=== PATIENT | female | born 1960 | race Caucasian/White ===

== ENCOUNTER 2021-06-21 15:23 | Outpatient (REF) | payer OTHER, SELFPAY ==
--- NOTE | ~2021-06-21 | XR_ITS ---
EXAMINATION: XR RIBS, RIGHT CLINICAL INFORMATION: Pain in the right ribs. Evaluate for a rib fracture. COMPARISON: None TECHNIQUE: Frontal view of chest. 3 oblique views of right ribs. A BB was placed in area of pain at the lower right ribs. FINDINGS: Lungs are clear. No consolidation, pneumothorax, or pleural effusion. The cardiomediastinal silhouette and pulmonary vasculature are normal. Osseous structures are unremarkable. Ribs are intact. No fractures are identified. XR/XR ribs RT min 3V w CXR1V IMPRESSION: Unremarkable examination.
== END 2021-06-21 15:24 | disposition home or self-care (01) ==
LOC: HO.XRAY 15:23
PROVIDERS: PCP Internal Medicine; Visit Provider Internal Medicine
DX: R07.81 Pleurodynia (principal)
CPT/HCPCS: 71101

== ENCOUNTER 2021-09-22 09:00 | Outpatient (REF) | payer OTHER, SELFPAY ==
--- NOTE | ~2021-09-22 | MR_ITS ---
EXAMINATION: MR BRAIN WITHOUT CONTRAST CLINICAL INFORMATION: Cerebral microvascular disease. Numbness/tingling. COMPARISON: Brain MRI from 10/06/2006. TECHNIQUE: MRI of the brain was obtained using routine sequences without contrast. FINDINGS: No focal restricted diffusion is demonstrated to suggest acute or subacute cerebral ischemia. No evidence of acute or chronic hemorrhagic products on heme-sensitive imaging. Scattered periventricular and deep white matter T2 FLAIR hyperintensities consistent with mild to moderate underlying microangiopathy. The ventricles are normal in morphology and size. No abnormal mass effect. No midline shift. Of the pituitary gland. There is a T1 hyperintense and T2 isointense lesion in the posterior aspect of the pituitary gland, measuring 0.8 x 0.5 x 0.5 cm. The suprasellar cistern remains widely patent. The cerebellar tonsils are mildly low lying, positioned 0.4 cm below the foramen magnum. The CSF space of the foramen magnum is maintained. Normal arterial and venous vascular flow voids are present. Normal, homogeneous marrow signal. Mild mucosal thickening of the paranasal sinuses. Mild rightward nasal septal deviation. No signal abnormalities within the mastoids. MR/MR head/brain wo con IMPRESSION: 1. No acute intracranial abnormalities. 2. Mild to moderate underlying microangiopathy, slightly progressed compared to exam from 2006. 3. There is a 0.8 cm nodular lesion in the posterior aspect of the pituitary gland. This lesion is more conspicuous than exam from 2006 and may represent an underlying microadenoma. If clinically indicated, this could be further characterized with pituitary protocol MRI. 4. Mild cerebellar tonsillar ectopia, unchanged.
== END 2021-09-22 09:01 | disposition home or self-care (01) ==
LOC: HO.MRI 09:00
PROVIDERS: PCP Internal Medicine; Visit Provider Psychiatry & Neurology Neurology
DX: I67.9 Cerebrovascular disease, unspecified (principal); R20.2 Paresthesia of skin
CPT/HCPCS: 70551

== ENCOUNTER 2021-09-29 14:43 | Outpatient (REF) | payer OTHER, SELFPAY ==
[2021-09-29 15:58] LABS: Erythrocyte Sedimentation Rate 9 MM/HR (0-20)
[2021-09-30 10:31] LABS: Lyme Abs Screen <0.90 index
[2021-09-30 14:26] LABS: Anti Nuclear Antibody Screen NEGATIVE (NEGATIVE)
[2021-09-30 20:41] LABS: Prolactin 4.9 ng/mL
== END 2021-09-29 14:44 | disposition home or self-care (01) ==
LOC: HO.LAB 14:43
PROVIDERS: PCP Internal Medicine; Visit Provider Psychiatry & Neurology Neurology
DX: G93.49 Other encephalopathy (principal); D35.2 Benign neoplasm of pituitary gland
CPT/HCPCS: 36415; 84146; 85652; 86038; 86039; 86617; 86618

== ENCOUNTER 2021-12-24 08:24 | Outpatient (REF) | payer OTHER, SELFPAY ==
--- NOTE | ~2021-12-24 | MM_ITS ---
EXAMINATION: MM SCREENING DIGITAL BREAST TOMOSYNTHESIS, BILATERAL CLINICAL INFORMATION: Screening. Asymptomatic. The lifetime risk of breast cancer based on the Tyrer-Cuzick Model is 5%. COMPARISON: Outside mammography: 01/05/2017, 06/15/2011 ([facility]). TECHNIQUE: Digital breast tomosynthesis is performed in both the craniocaudal and mediolateral oblique views along with computer-aided detection (CAD). Synthesized 2D images are generated from the tomosynthesis. FINDINGS: There are scattered areas of fibroglandular density (ACR BI-RADS breast composition Category b). There are no significant masses, abnormal calcifications, or other abnormalities. Parenchymal pattern is similar to prior outside studies. No developing density or interval architectural abnormality. The axilla and skin contours are unremarkable. MM/MM tomosynthesis screening BI IMPRESSION: No mammographic evidence of malignancy. ASSESSMENT: BI-RADS 1: Negative RECOMMENDATION: Routine annual mammography screening. This patient's information was entered into a reminder system with a target due date for their next mammogram.
== END 2021-12-24 08:25 | disposition home or self-care (01) ==
LOC: HO.MAMMO 08:24
PROVIDERS: Visit Provider Internal Medicine
DX: Z12.31 Encounter for screening mammogram for malignant neoplasm of breast (principal)
CPT/HCPCS: 77063; 77067

== ENCOUNTER 2022-01-13 06:40 | Outpatient (REF) | payer OTHER, SELFPAY ==
[2022-01-13 08:03] LABS: Alanine Aminotransferase 19 U/L (0-31); Albumin Level 4.3 g/dL (3.5-5.0); Alkaline Phosphatase 72 U/L (39-117); Anion Gap 12 (12-20); Aspartate Amino Transferase 18 U/L (5-31); Bilirubin Total 0.6 mg/dL (0.0-1.0); Blood Urea Nitrogen 14 mg/dL (9-16); Calcium 9.8 mg/dL (8.4-10.2); Carbon Dioxide 29 mmol/L (22-29); Chloride 105 mmol/L (96-108); Cholesterol 172 mg/dL; Estimated Glomerular Filt Rate > 60; Glucose Random 95 mg/dL (60-115); HDL Cholesterol 51 mg/dL; LDL Cholesterol Calculated 94 mg/dl; Potassium 4.5 mmol/L (3.3-5.1); Sodium 141 mmol/L (135-145); Total Protein 7.1 g/dL (6.5-8.0); Triglycerides 139 mg/dL
[2022-01-13 08:16] LABS: Thyroid Stimulating Hormone 3.54 uIU/mL (0.32-4.0)
== END 2022-01-13 06:41 | disposition home or self-care (01) ==
LOC: HO.LAB 06:40
PROVIDERS: PCP Internal Medicine; Visit Provider Internal Medicine
DX: Z00.00 Encounter for general adult medical examination without abnormal findings (principal); I10 Essential (primary) hypertension; R20.2 Paresthesia of skin; F33.42 Major depressive disorder, recurrent, in full remission
CPT/HCPCS: 36415; 80053; 80061; 84443

== ENCOUNTER → 2022-05-24 08:42 | Outpatient (BNVA) | payer OTHER, SELFPAY | PROVIDERS: PCP Internal Medicine; Visit Provider Physician Assistant Medical | DX: S80.12XA Contusion of left lower leg, initial encounter (principal); W03.XXXA Other fall on same level due to collision with another person, initial encounter | CPT/HCPCS: 99202 ==

== ENCOUNTER 2022-05-29 07:25 | Outpatient (REF) | payer OTHER, SELFPAY ==
[2022-05-29 07:43] LABS: MANUAL DIFF FLAG NO
[2022-05-29 07:55] LABS: Basophils Percent Auto 0.3 % (0-2); Eosinophils Absolute Auto 0.2 X10*3/uL (0.0-0.4); Eosinophils Percent Auto 2.8 % (0-4); Hematocrit 42.4 % (37.0-47.0); Hemoglobin 14.2 g/dl (12.0-16.0); Imm Gran Abs Auto 0.02 X10*3/uL (0.00-0.03); Imm Gran Pct Auto 0.3 % (0.0-0.4); Lymphocytes Absolute Auto 2.1 X10*3/uL (1.2-4.9); Lymphocytes Percent Auto 31.6 % (20-40); Mean Corpuscular HGB Conc 33.5 g/dl (31.0-35.0); Mean Corpuscular Hemoglobin 30.1 pg (27.0-33.0); Mean Corpuscular Volume 89.8 fL (80.0-98.0); Mean Platelet Volume 8.9 fL (9.4-12.3); Monocytes Absolute Auto 0.6 X10*3/uL (0.1-1.2); Monocytes Percent Auto 8.4 % (2-11); Neutrophils Absolute Auto 3.8 x10*3/uL (2.0-8.3); Neutrophils Percent Auto 56.6 % (45-73); Platelet Count 336 X10*3/uL (160-400); Red Blood Count 4.72 X10*6/uL (4.20-5.50); Red Cell Distribution Width 12.8 % (11.0-16.0); White Blood Count 6.8 X10*3/uL (4.8-10.8)
[2022-05-29 08:21] LABS: Alanine Aminotransferase 19 U/L (0-31); Albumin Level 4.3 g/dL (3.5-5.0); Alkaline Phosphatase 69 U/L (39-117); Anion Gap 12 (12-20); Aspartate Amino Transferase 18 U/L (5-31); Bilirubin Total 0.5 mg/dL (0.0-1.0); Blood Urea Nitrogen 15 mg/dL (9-16); Carbon Dioxide 26 mmol/L (22-29); Chloride 107 mmol/L (96-108); Estimated Glomerular Filt Rate > 60; Glucose Random 102 mg/dL (60-115); Potassium 4.7 mmol/L (3.3-5.1); Sodium 140 mmol/L (135-145)
== END 2022-05-29 07:26 | disposition home or self-care (01) ==
LOC: HO.LAB 07:25
PROVIDERS: PCP Internal Medicine; Visit Provider Internal Medicine
DX: I10 Essential (primary) hypertension (principal); E78.00 Pure hypercholesterolemia, unspecified; G44.209 Tension-type headache, unspecified, not intractable; J01.90 Acute sinusitis, unspecified
CPT/HCPCS: 36415; 80053; 85025

== ENCOUNTER → 2022-05-29 13:24 | Outpatient (BNVA) | payer OTHER, SELFPAY | PROVIDERS: PCP Internal Medicine; Visit Provider Physician Assistant Medical | DX: S86.112A Strain of other muscle(s) and tendon(s) of posterior muscle group at lower leg level, left leg, initial encounter (principal); W22.8XXA Striking against or struck by other objects, initial encounter | CPT/HCPCS: 73590; 99213 ==

== ENCOUNTER → 2022-06-05 10:00 | Outpatient (BNVA) | payer OTHER, SELFPAY | PROVIDERS: PCP Internal Medicine; Visit Provider Physician Assistant Medical | DX: S82.492A Other fracture of shaft of left fibula, initial encounter for closed fracture (principal); W03.XXXA Other fall on same level due to collision with another person, initial encounter | CPT/HCPCS: 73700; 99213 ==

== ENCOUNTER 2022-06-15 06:00 | Outpatient (REF) | payer OTHER, SELFPAY ==
--- NOTE | ~2022-06-15 | XR_ITS ---
EXAMINATION: XR TIBIA AND FIBULA, LEFT CLINICAL INFORMATION: Pain. COMPARISON: CT left lower extremity 06/05/2022. TECHNIQUE: AP and lateral views of the left tibia and fibula were obtained. FINDINGS: Hairline fracture along the posterior aspect of the fibular head apex, best visualized on prior CT, likely due to limitations of radiographic examinations. No other discrete fractures. Calcaneus spurring redemonstrated. Joint alignment is anatomic. No significant soft tissue abnormality. XR/XR tibia fibula LT 2V IMPRESSION: Possible hairline fracture on the left fibular apex, best seen on prior CT. No other fractures.
== END 2022-06-15 06:01 | disposition home or self-care (01) ==
LOC: HO.HOSX 06:00
PROVIDERS: Visit Provider Physician Assistant
DX: S82.832A Other fracture of upper and lower end of left fibula, initial encounter for closed fracture (principal)
CPT/HCPCS: 73590; 99202

== ENCOUNTER 2022-12-29 07:05 | Outpatient (REF) | payer OTHER, SELFPAY ==
[2022-12-29 08:05] LABS: Alanine Aminotransferase 13 U/L (0-31); Albumin Level 4.2 g/dL (3.5-5.0); Alkaline Phosphatase 73 U/L (39-117); Anion Gap 14 (12-20); Aspartate Amino Transferase 17 U/L (5-31); Bilirubin Total 0.7 mg/dL (0.0-1.0); Blood Urea Nitrogen 14 mg/dL (9-16); Calcium 9.7 mg/dL (8.4-10.2); Carbon Dioxide 28 mmol/L (22-29); Chloride 106 mmol/L (96-108); Cholesterol 170 mg/dL; Estimated Glomerular Filt Rate > 60; Glucose Fasting 91 mg/dL (60-99); HDL Cholesterol 50 mg/dL; LDL Cholesterol Calculated 87 mg/dl; Potassium 4.8 mmol/L (3.3-5.1); Sodium 143 mmol/L (135-145); Triglycerides 167 mg/dL
[2022-12-29 08:20] LABS: Thyroid Stimulating Hormone 2.02 uIU/mL (0.32-4.0)
== END 2022-12-29 07:06 | disposition home or self-care (01) ==
LOC: HO.LAB 07:05
PROVIDERS: PCP Internal Medicine; Visit Provider Internal Medicine
DX: Z00.00 Encounter for general adult medical examination without abnormal findings (principal); F33.42 Major depressive disorder, recurrent, in full remission; I10 Essential (primary) hypertension; R20.2 Paresthesia of skin
CPT/HCPCS: 36415; 80053; 80061; 84443

== ENCOUNTER 2023-06-07 07:07 | Outpatient (REF) | payer OTHER, SELFPAY ==
[2023-06-07 07:21] LABS: MANUAL DIFF FLAG NO
[2023-06-07 08:09] LABS: Basophils Percent Auto 0.4 % (0-2); Eosinophils Absolute Auto 0.2 X10*3/uL (0.0-0.4); Hematocrit 43.5 % (37.0-47.0); Hemoglobin 14.3 g/dl (12.0-16.0); Imm Gran Abs Auto 0.02 X10*3/uL (0.00-0.03); Imm Gran Pct Auto 0.3 % (0.0-0.4); Lymphocytes Absolute Auto 2.5 X10*3/uL (1.2-4.9); Lymphocytes Percent Auto 33.6 % (20-40); Mean Corpuscular HGB Conc 32.9 g/dl (31.0-35.0); Mean Corpuscular Hemoglobin 30.2 pg (27.0-33.0); Mean Corpuscular Volume 91.8 fL (80.0-98.0); Mean Platelet Volume 9.3 fL (9.4-12.3); Monocytes Absolute Auto 0.6 X10*3/uL (0.1-1.2); Monocytes Percent Auto 7.5 % (2-11); Neutrophils Absolute Auto 4.2 x10*3/uL (2.0-8.3); Neutrophils Percent Auto 56.2 % (45-73); Platelet Count 335 X10*3/uL (160-400); Red Blood Count 4.74 X10*6/uL (4.20-5.50); White Blood Count 7.5 X10*3/uL (4.8-10.8)
[2023-06-07 08:36] LABS: Alanine Aminotransferase 15 U/L (0-31); Albumin Level 4.1 g/dL (3.5-5.0); Alkaline Phosphatase 78 U/L (39-117); Anion Gap 17 (12-20); Aspartate Amino Transferase 16 U/L (5-31); Bilirubin Total 0.4 mg/dL (0.0-1.0); Blood Urea Nitrogen 15 mg/dL (9-16); Calcium 9.1 mg/dL (8.4-10.2); Carbon Dioxide 22 mmol/L (22-29); Chloride 106 mmol/L (96-108); Cholesterol 165 mg/dL; Estimated Glomerular Filt Rate > 60; Glucose Random 95 mg/dL (60-115); HDL Cholesterol 48 mg/dL; LDL Cholesterol Calculated 90 mg/dl; Potassium 3.8 mmol/L (3.3-5.1); Sodium 141 mmol/L (135-145); Total Protein 7.2 g/dL (6.5-8.0); Triglycerides 137 mg/dL
[2023-06-07 08:51] LABS: Thyroid Stimulating Hormone 3.05 uIU/mL (0.32-4.0); Vitamin D 25-OH Total 45.2 ng/mL (>30)
== END 2023-06-07 07:08 | disposition home or self-care (01) ==
LOC: HO.LAB 07:07
PROVIDERS: PCP Internal Medicine; Visit Provider Internal Medicine
DX: E78.2 Mixed hyperlipidemia (principal); G44.209 Tension-type headache, unspecified, not intractable; I10 Essential (primary) hypertension; M81.8 Other osteoporosis without current pathological fracture
CPT/HCPCS: 36415; 80053; 80061; 82306; 84443; 85025

== ENCOUNTER 2024-06-05 08:23 | Outpatient (REF) | payer OTHER, SELFPAY ==
[2024-06-05 09:25] LABS: Alanine Aminotransferase 16 U/L (0-31); Albumin Level 4.4 g/dL (3.5-5.0); Alkaline Phosphatase 77 U/L (39-117); Anion Gap 14 (12-20); Aspartate Amino Transferase 17 U/L (5-31); Bilirubin Total 0.5 mg/dL (0.0-1.0); Blood Urea Nitrogen 14 mg/dL (9-16); Calcium 9.5 mg/dL (8.4-10.2); Carbon Dioxide 23 mmol/L (22-29); Chloride 110 mmol/L (96-108); Cholesterol 173 mg/dL (<200); Estimated Glomerular Filt Rate > 60; Glucose Random 96 mg/dL (60-115); HDL Cholesterol 56 mg/dL (>40); LDL Cholesterol Calculated 94 mg/dL (<100); Potassium 3.9 mmol/L (3.3-5.1); Sodium 143 mmol/L (135-145); Total Protein 7.3 g/dL (6.5-8.0); Triglycerides 118 mg/dL (<150)
== END 2024-06-05 08:24 | disposition home or self-care (01) ==
LOC: HO.MAMMO 08:23
PROVIDERS: PCP Internal Medicine; Visit Provider Internal Medicine
DX: E78.2 Mixed hyperlipidemia (principal); F41.8 Other specified anxiety disorders; G47.00 Insomnia, unspecified; G47.33 Obstructive sleep apnea (adult) (pediatric); Z12.31 Encounter for screening mammogram for malignant neoplasm of breast
CPT/HCPCS: 36415; 77063; 77067; 80053; 80061

== ENCOUNTER → 2024-06-05 09:15 | Outpatient (BNV) | payer OTHER, SELFPAY | PROVIDERS: PCP Internal Medicine; Visit Provider Radiology Diagnostic Radiology | DX: Z12.31 Encounter for screening mammogram for malignant neoplasm of breast (principal) | CPT/HCPCS: 77063; 77067 ==

== ENCOUNTER 2024-10-17 10:14 | Outpatient (AMB) | payer MEDICARE, OTHER, SELFPAY ==
--- NOTE | 2024-10-17 07:52 | A.OFFVIS_ITS ---
Intake Visit Reasons: Current Smoker Allergies Penicillins [PENICILLINS] Allergy (Severe, Unverified 06/15/22 09:22) ANAPHYLAXIS penicillin V Allergy (Unknown, Verified 06/15/22 09:22) Difficulty Breathing HPI HPI Current Smoker: Details: Initial visit for this 64yo smoker with a 35PYH. Patient started smoking at age 13 for 48 at 1/2-1ppd. (period of 3 years she quit for accounted for) . Denies marijuana use. Denies second hand smoke exposure. Denies exposure to chemicals or substances like asbestos. . Denies known family history of lung cancer. Denies personal history of cancers. Denies chest CT in last year. . Denies recent travel outside the [place]. Denies recent respiratory illness or recent hospitalization for respiratory issues. Denies testing positive for COVID. Admits receiving COVID Vaccine. . Denies fever, chills, new/worsening cough, hemoptysis, hoarseness or dysphagia. Denies significant chest pain, significant dyspnea or unintentional weight loss. Patient Lung Cancer Screening Questionnaire reviewed with patient by provider. . Shared Decision Making Completed. Patient meets criteria. Discussed in detail with patient, the risk vs benefit of LDCT screening. Patient consents to proceed with scan. Discussed smoking cessation. [facility] Medical History (Updated 10/17/24 @ 10:21 by Cristela Bishop PA-C) Osteopenia Nicotine dependence, cigarettes, uncomplicated High cholesterol Surgical History (Updated 07/31/24 @ 12:52 by Cristela Bishop PA-C) S/P excision of ganglion cyst Social History (Updated 10/17/24 @ 10:22 by Cristela Bishop PA-C) Alcohol intake: current Alcohol intake frequency: a few times a month Patient Tobacco Use Status: Current everyday Tobacco user Years Smoked: (onset 13yo, 1/2-1ppd x 48yrs, 35pyh) Current occupational status: employed Current occupation: teacher/rt hand Assessment & Plan Assessment & Plan (1) Nicotine dependence, cigarettes, uncomplicated: Comment: (onset 13yo, 1/2-1ppd x 48yrs, 35pyh) Code(s): F17.210 - Nicotine dependence, cigarettes, uncomplicated Category: Medical Plan: - SDM visit completed today in office. - Patient meets criteria for LDCT for lung cancer screening purposes and is asymptomatic. - Smoking cessation counseling offered. Patients can always call [phone]. - Will arrange for a LDCT scan of the chest for screening purposes at [facility]. - Risks, benefits, and alternatives were discussed in detail and the patient agrees to proceed. - Risks discussed include but are not limited to: radiation exposure, anxiety during testing and while awaiting results, false negatives, false positives and possibility of additional intervention such as further imaging or surgical procedures for benign disease. - Benefits are obviously detection of lung cancer at an early stage which can lead to improved outcomes. - Discussed the importance of screening program compliance with adherence to yearly LDCT scan as scheduled - or sooner interval scans for personalized screening regimen. - Discussed follow up plan. Our office will send a letter discussing results and if needed set up phone call and office visit based on CT findings. - Patient educated on results categorization and the management decisions for suspicious findings potentially found on the screening LDCT scan. Any patient with a Lung RADS score of 3 or 4 will be reviewed by a multidisciplinary team at [facility] to form a plan of action in regards to scan findings. - If further work up is warranted for a suspicious lung finding this will be followed by the Lung Cancer Screening program in conjunction with the Thoracic Surgery Department at [facility]. - A copy of the office note and LDCT will be sent to the patient's PCP - as well as documentation on any associated further plans of care. - Incidental findings on LDCT are the PCP's responsibility. These findings are indicated with an S finding on the LDCT Assessment. A note discussing the findings will be sent to the PCP who is then responsible for further management. - All questions answered.? Coding Level of Care Code Lung Cancer Screening [id number] Diagnoses Nicotine dependence, cigarettes, uncomplicated F17.210
== END 2024-10-17 13:28 | disposition home or self-care (01) ==
PROVIDERS: PCP Internal Medicine; Referring Provider Internal Medicine; Visit Provider Physician Assistant Medical
DX: F17.210 Nicotine dependence, cigarettes, uncomplicated (principal)
CPT/HCPCS: G0296

== ENCOUNTER 2024-10-17 10:32 | Outpatient (REF) | payer MEDICARE, OTHER, SELFPAY ==
--- NOTE | ~2024-10-17 | CT_ITS ---
EXAMINATION: CT LOW-DOSE SCREENING CHEST WITHOUT CONTRAST CLINICAL INFORMATION: Personal history of nicotine dependence. The patient is a current smoker with a 24.5 pack-year history of smoking. COMPARISON: None available. TECHNIQUE: Multidetector volumetric CT imaging of the chest is performed on a Siemens SOMATOM Definition scanner without contrast using low dose technique. Additional 2D coronal and sagittal reformatted images and axial 3D maximum intensity projection (MIP) images are generated on the CT workstation. This CT examination was performed using dose optimization techniques as appropriate, variously including the following: *Automated exposure control *Adjustment of mA and/or kV according to patient size (this includes techniques or standardized protocols for targeted exams where dose is matched to indication/reason for exam; i.e. extremities or head) *Use of iterative reconstruction technique TOTAL EXAM DLP: 41 mGy-cm. CTDIvol: 1.15 mGy. FINDINGS: PULMONARY NODULES: Within the right upper lobe laterally (5:199 and 206), there are 2 noncalcified 1 mm nodules. Within the lateral segment of the right middle lobe (5:222), a 1 mm noncalcified nodule is seen. Within the lateral basal segment of the right lower lobe (5:256), a 4 mm noncalcified nodule is seen. Within the medial basal segment of the right lower lobe (5:257), a 4 mm noncalcified nodule is seen. Within the anterior basal segment of the right lower lobe caudally (5:368), abutting 7 mm and 6 mm noncalcified nodules are seen. Within the anteromedial basal segment of the left lower lobe (5:407), a 3 mm noncalcified nodule is seen. LUNGS: The bilateral lungs are symmetrically expanded. There is no pleural effusion or pneumothorax. There are foci of minor scar/subsegmental atelectasis within the right middle lobe, the lateral right base and the lingula, without associated focal airway obstruction. No generalized small airway thickening is seen. The central airways patent. MEDIASTINUM: No mediastinal, hilar or axillary adenopathy or free fluid collection. CORONARY ARTERY CALCIFICATION: Mild. THYROID GLAND: Unremarkable to the extent seen. CARDIOVASCULAR STRUCTURES: Aortic and heart size normal. No pericardial effusion. CHEST WALL/AXILLA: Unremarkable. UPPER ABDOMEN: The gallbladder is incompletely covered in the [id number]; and a cholesterol gallstone is questioned (3:64). OSSEOUS STRUCTURES: There is multi-level thoracic and upper lumbar spondylosis. No acute or aggressive osseous finding is noted. CT/CT lung screening IMPRESSION: 1. Bilateral noncalcified lung nodules are seen, as detailed, the largest at the anterior right base measuring 7 mm. 2. There are scattered foci of minor scar/subsegmental atelectasis, without associated focal airway obstruction. 3. No thoracic lymphadenopathy or pleural effusion is seen. 4. There is multi-level thoracic spondylosis. 5. Question gallstone disease, which could be more fully evaluated with dedicated abdominal ultrasound, if clinically warranted. ASSESSMENT: 1. Lung-RADS Category 3: Probably benign findings. N/A 2. Lung-RADS Category S: Negative. There are no clinically significant or potentially clinically significant findings not related to the lungs requiring urgent additional evaluation. RECOMMENDATION: A 6-month follow up low-dose lung CT scan is recommended. An order for CT LUNG CANCER SCREENING SHORT INTERVAL FOLLOWUP ([id number]) can be placed. Electronically signed by: Tai Sanabria MD 12/09/2024 05:43 PM EST
== END 2024-10-17 10:33 | disposition home or self-care (01) ==
LOC: HO.CT 10:32
PROVIDERS: PCP Internal Medicine; Visit Provider Physician Assistant Medical
DX: Z12.2 Encounter for screening for malignant neoplasm of respiratory organs (principal); F17.210 Nicotine dependence, cigarettes, uncomplicated
CPT/HCPCS: 71271; G0296

== ENCOUNTER 2024-12-31 08:49 | Outpatient (REF) | payer MEDICARE, OTHER, SELFPAY ==
[2024-12-31 09:16] LABS: MANUAL DIFF FLAG NO
[2024-12-31 09:47] LABS: Basophils Percent Auto 0.3 % (0-2); Eosinophils Absolute Auto 0.3 X10*3/uL (0.0-0.4); Eosinophils Percent Auto 2.9 % (0-4); Hematocrit 43.4 % (37.0-47.0); Hemoglobin 14.8 g/dl (12.0-16.0); Imm Gran Abs Auto 0.03 X10*3/uL (0.00-0.03); Imm Gran Pct Auto 0.3 % (0.0-0.4); Lymphocytes Percent Auto 19.8 % (20-40); Mean Corpuscular HGB Conc 34.1 g/dl (31.0-35.0); Mean Corpuscular Hemoglobin 30.7 pg (27.0-33.0); Mean Platelet Volume 8.8 fL (9.4-12.3); Monocytes Absolute Auto 0.6 X10*3/uL (0.1-1.2); Monocytes Percent Auto 5.9 % (2-11); Neutrophils Absolute Auto 7.1 x10*3/uL (2.0-8.3); Neutrophils Percent Auto 70.8 % (45-73); Platelet Count 351 X10*3/uL (160-400); Red Blood Count 4.82 X10*6/uL (4.20-5.50); Red Cell Distribution Width 12.8 % (11.0-16.0)
[2024-12-31 10:23] LABS: Alanine Aminotransferase 23 U/L (0-31); Albumin Level 4.5 g/dL (3.5-5.0); Alkaline Phosphatase 89 U/L (39-117); Anion Gap 12 (12-20); Aspartate Amino Transferase 21 U/L (5-31); Bilirubin Total 0.5 mg/dL (0.0-1.0); Blood Urea Nitrogen 20 mg/dL (9-16); Calcium 9.3 mg/dL (8.4-10.2); Carbon Dioxide 25 mmol/L (22-29); Chloride 107 mmol/L (96-108); Cholesterol 178 mg/dL (<200); Estimated Glomerular Filt Rate > 60; Glucose Random 93 mg/dL (60-115); HDL Cholesterol 58 mg/dL (>40); LDL Cholesterol Calculated 97 mg/dL (<100); Potassium 3.9 mmol/L (3.3-5.1); Sodium 140 mmol/L (135-145); Triglycerides 119 mg/dL (<150)
== END 2024-12-31 08:50 | disposition home or self-care (01) ==
LOC: HO.LAB 08:49
PROVIDERS: PCP Internal Medicine; Visit Provider Internal Medicine
DX: Z00.00 Encounter for general adult medical examination without abnormal findings (principal); E78.00 Pure hypercholesterolemia, unspecified; G47.33 Obstructive sleep apnea (adult) (pediatric); Z72.0 Tobacco use
CPT/HCPCS: 36415; 80053; 80061; 85025

== ENCOUNTER 2025-03-10 08:35 | Outpatient (REF) | payer MEDICARE, OTHER, SELFPAY ==
--- NOTE | ~2025-03-10 | PE_ITS ---
EXAMINATION: FLUORINE-18 FDG PET/CT SCAN CLINICAL INFORMATION: Right lower lobe pulmonary nodule. TECHNIQUE: 63 minutes following the intravenous administration of 17.4 mCi of fluorine 18 FDG, images from the skull base to proximal thigh were obtained using a combined PET/CT scanner with CT scan based attenuation correction. No oral or intravenous contrast was administered. Transverse, coronal, sagittal, and volume reconstruction projections were obtained. The patient's blood glucose as determined by a finger stick, was 19 mg/dL immediately prior to injection. The radiotracer was injected intravenously through left antecubital vein, without any complications. Total CT exam dose-length product by 52 mGy-cm. * These CT images were obtained using dose optimization techniques as appropriate, variously including the following: Automated exposure control * Adjustment of mA and/or kV according to patient size (this includes techniques or standardized protocols for targeted exams where dose is matched to indication/reason for exam; i.e. extremities or head) * Use of iterative reconstruction technique COMPARISON: CT chest 10/17/2024 FINDINGS: HEAD AND NECK: There is normal specific symmetrical moderate metabolic activity seen in bilateral thyroid cartilage and thyroid muscles. No corresponding abnormality seen on CT. The nasopharyngeal and laryngeal airway is widely patent. Nonspecific activity seen along the anterior hypopharyngeal wall/base of the tongue. No abnormality seen on CT CHEST: Ports and Devices: None Lungs: There are 2 dominant 6 mm some nodules right lower lobe medial basal segment on CT image 174/2 without any corresponding metabolic FDG activity. No FDG activity seen in lung parenchyma, mediastinum, chest wall and axilla. Pleura: No significant pleural effusion. Lymph Nodes: No tracer-avid mediastinal, hilar or internal mammary or axillary lymphadenopathy. Mediastinum: There is no significant pericardial effusion/thickening. Breasts/Chest Wall: No abnormal radiotracer uptake. ABDOMEN/PELVIS: Liver/Biliary System: No focal tracer-avid liver lesion. The gallbladder appears unremarkable. Pancreas: Normal.No pancreatic ductal dilatation seen. Spleen: No abnormal radiotracer uptake. No evidence of splenomegaly. Adrenal Glands: No abnormal radiotracer uptake. Kidneys: No hydronephrosis, hydroureter or renal calculi bilaterally. Bowel: There is no significant bowel dilatation to suggest obstruction. There is mild scattered stool in the colon without distention Lymph Nodes: No tracer avid retroperitoneal, mesenteric or pelvic and/or groin lymphadenopathy. Pelvic Organs: The urinary bladder is underdistended. MUSCULOSKELETAL: No abnormal metabolic activity seen. Mild DJD lower cervical, mid thoracic and lower lumbar spine. No lytic or sclerotic process VASCULAR: Unremarkable THE SITE(S) OF MOST INTENSE FDG AVIDITY AND SUV MAX: PET/PET CT fusion skull to thigh IMPRESSION: There are 2 nodules visualized in the medial segment of right lower lobe with no FDG activity seen. There are smaller nodules visualized in the previous CT chest 10/17/2024 measuring 1 mm nodule visualized on the present exam. Nonspecific metabolic activity along the base of the tongue/anterior hypopharyngeal wall. No corresponding CT abnormality. Nonspecific circumferential activity in the thyroid cartilage/laryngeal area likely related to vocalization during exam. Electronically signed by: Abhijit Alcantar MD 03/12/2025 07:17 AM EDT
== END 2025-03-10 08:36 | disposition home or self-care (01) ==
LOC: HO.PET 08:35
PROVIDERS: PCP Internal Medicine; Visit Provider Internal Medicine Pulmonary Disease
DX: Z13.89 Encounter for screening for other disorder (principal)

== ENCOUNTER 2025-03-10 09:54 | Outpatient (REF) | payer MEDICARE, OTHER, SELFPAY | END 2025-03-10 09:55 | disposition home or self-care (01) | LOC: HO.HOSX 09:54 | PROVIDERS: Visit Provider Physician Assistant | DX: Z13.89 Encounter for screening for other disorder (principal) ==

== ENCOUNTER → 2025-03-24 14:55 | Outpatient (REF) | payer MEDICARE, OTHER, SELFPAY | LOC: HO.SL 14:55 | PROVIDERS: PCP Internal Medicine; Visit Provider Internal Medicine | DX: G47.33 Obstructive sleep apnea (adult) (pediatric) (principal) | CPT/HCPCS: 95806 ==

== ENCOUNTER → 2025-03-24 19:00 | Outpatient (BNV) | payer MEDICARE, OTHER, SELFPAY | PROVIDERS: PCP Internal Medicine; Visit Provider Internal Medicine | DX: R06.83 Snoring (principal) | CPT/HCPCS: 95806 ==

== ENCOUNTER 2025-04-08 12:55 | Outpatient (AMB) | payer MEDICARE, OTHER, SELFPAY ==
[2025-04-08 13:01] VITALS: BP 96/68; PULSE 89; O2SAT 98; BMI 24.0
--- NOTE | 2025-04-08 13:01 | MHC.OFFVIS ---
Vital Signs 04/08/25 13:01 Height 5 ft 5 in Weight 144 lb BMI 24.0 BP 96/68 Blood Pressure Location Lt brachial Position Sitting Pulse 89 Pulse Source Pulse Oximeter Pulse Oximetry (%) 98 Oxygen Delivery Method Room Air Intake Visit Reasons: Abnormal CT scan/Pulm Nodules Allergies Penicillins [PENICILLINS] Allergy (Severe, Unverified 04/08/25 13:06) ANAPHYLAXIS penicillin V Allergy (Unknown, Verified 04/08/25 13:06) Difficulty Breathing HPI HPI Abnormal CT scan/Pulm Nodules: Details: Kayla is a pleasant 64-year-old female, current smoker, with 35 pack year history with underlying osteopenia and hypercholesteremia. She was referred from the lung screening program for pulmonary evaluation. She had her first low-dose CT scan October 2024 which revealed bilateral noncalcified lung nodules of right base measuring 7 mm. This was discussed at the multidisciplinary conference with recommendations for PET scan which was performed and did not reveal any FDG activity. She has an upcoming [address], from 10/2024 scan for April. At this time she reports productive cough in the morning with whitish sputum otherwise denies dyspnea, chest tightness or wheezing. She denies prior history of asthma or COPD. She is working toward smoking cessation and is interested in hypnosis. She endorses seasonal allergies and prior testing revealed multiple environmental allergies. She has been using Zyrtec with good effect. She has a cat and dog at home. She denies any occupational exposures. She denies any per family history. [facility] Medical History (Updated 04/09/25 @ 10:05 by Arin Duff NP) Osteopenia Nicotine dependence, cigarettes, uncomplicated High cholesterol Surgical History (Updated 07/31/24 @ 12:52 by Cristela Bishop PA-C) S/P excision of ganglion cyst Social History (Updated 04/08/25 @ 13:06 by Liudmila Rao CMA) Alcohol intake: current Alcohol intake frequency: a few times a month Patient Tobacco Use Status: Current everyday Tobacco user Cigarette Packs Per Day: 0.5 Cigarettes Per Day: 10 Years Smoked: (onset 13yo, 1/2-1ppd x 48yrs, 35pyh) Current occupational status: employed Current occupation: teacher/rt hand Review of Systems Const Denies chills, Denies excessive sweating, Denies fever(s), Denies headache(s) and Denies night sweats Eyes Denies dry eyes, Denies irritation and Denies itchy eyes ENT Reports Normal hearing present, Denies headache(s), Denies nasal congestion, Denies nasal discharge, Denies post nasal drip and Denies sore throat Card Denies chest pain, Denies chest pain at rest, Denies chest pain with activity, Denies claudication, Denies leg edema, Denies dyspnea, Denies dyspnea on exertion, Denies orthopnea and Denies paroxysmal nocturnal dyspnea Resp Denies chest congestion, Denies excessive phlegm production, Denies pain on inspiration, Denies pain with cough, Denies dyspnea, Denies dyspnea on exertion, Denies stridor and Denies wheezing Musc Denies myalgias Neuro Reports Normal hearing present and Denies headache(s) Endo Denies excessive sweating Mj/Lymph Denies lymphadenopathy Aller/Immun Denies itchy eyes, Denies seasonal rhinorrhea and Denies wheezing Physical Exam Vital Signs: Last Vital Signs Pulse 89 04/08/25 13:01 BP 96/68 04/08/25 13:01 Pulse Ox 98 04/08/25 13:01 Oxygen Delivery Method Room Air 04/08/25 13:01 BMI result Body Mass Index 24.0 Const General: cooperative, healthy appearing, comfortable, no acute distress, well developed and alert Orientation/consciousness: patient oriented x3 Limitations: no limitations HEENT Head: Yes normal to inspection, Yes normocephalic and Yes atraumatic Ears: hearing grossly normal bilaterally and external ears normal Eyes General: appearance normal, both eyes and all related structures Eyelids: Yes eyelids normal Sclerae: sclerae normal EOM: EOMs intact bilaterally Neck Neck: Yes normal visual inspection and Yes no lymphadenopathy Lymphatic: no lymphadenopathy noted Chest Chest palpation & inspection: normal inspection of the chest Resp Effort & Inspection: normal respiratory effort, able to speak in complete sentences, no audible wheezes, no cough, no stridor, not tachypneic, no tripod positioning and no use of accessory muscles Auscultation: clear to auscultation bilaterally Cardio Jugular venous distension: no JVD Rate: regular rate Rhythm: regular rhythm Skin Other: warm, dry General skin exam: no rashes or lesions noted Neuro General: patient oriented x3 Cranial nerves: Yes Normal hearing present Cognition (Neuro): normal cognition Gait exam (Neuro): Normal gait present Extrem General: Yes normal to inspection, Yes capillary refill normal, Yes no clubbing, cyanosis or edema and Yes no pedal edema Psych Appearance: grossly normal and well kempt Speech and movement: Normal speech and movement present and Clear speech present Affect: normal affect Attitude: cooperative Thought process: Normal thought process present Thought content: Normal thought content present Insight: Good insight present (Psych) Judgement: Good judgement present (Psych) Results Reviewed Results Reviewed: [address] [address] [address] Scan Report Signed Patient: Kayla Abel MR#: [id number] : 1960 Acct:[id number] Age/Sex: 64 / F ADM Date: 10/17/24 Loc: .CT Attending Dr: Cristela Bishop PA-C Ordering Physician: Cristela Bishop PA-C Date of Service: 10/17/24 Procedure(s): CT lung screening Accession Number(s): [id number] cc: Kusum Fritz MD; Cristela Bishop PA-C~ Report Number: [id number]: Total DLP = 41.00 mGy-cm EXAMINATION: CT LOW-DOSE SCREENING CHEST WITHOUT CONTRAST CLINICAL INFORMATION: Personal history of nicotine dependence. The patient is a current smoker with a 24.5 pack-year history of smoking. COMPARISON: None available. TECHNIQUE: Multidetector volumetric CT imaging of the chest is performed on a Siemens SOMATOM Definition scanner without contrast using low dose technique. Additional 2D coronal and sagittal reformatted images and axial 3D maximum intensity projection (MIP) images are generated on the CT workstation. This CT examination was performed using dose optimization techniques as appropriate, variously including the following: *Automated exposure control *Adjustment of mA and/or kV according to patient size (this includes techniques or standardized protocols for targeted exams where dose is matched to indication/reason for exam; i.e. extremities or head) *Use of iterative reconstruction technique TOTAL EXAM DLP: 41 mGy-cm. CTDIvol: 1.15 mGy. FINDINGS: PULMONARY NODULES: Within the right upper lobe laterally (5:199 and 206), there are 2 noncalcified 1 mm nodules. Within the lateral segment of the right middle lobe (5:222), a 1 mm noncalcified nodule is seen. Within the lateral basal segment of the right lower lobe (5:256), a 4 mm noncalcified nodule is seen. Within the medial basal segment of the right lower lobe (5:257), a 4 mm noncalcified nodule is seen. Within the anterior basal segment of the right lower lobe caudally (5:368), abutting 7 mm and 6 mm noncalcified nodules are seen. Within the anteromedial basal segment of the left lower lobe (5:407), a 3 mm noncalcified nodule is seen. LUNGS: The bilateral lungs are symmetrically expanded. There is no pleural effusion or pneumothorax. There are foci of minor scar/subsegmental atelectasis within the right middle lobe, the lateral right base and the lingula, without associated focal airway obstruction. No generalized small airway thickening is seen. The central airways patent. MEDIASTINUM: No mediastinal, hilar or axillary adenopathy or free fluid collection. CORONARY ARTERY CALCIFICATION: Mild. THYROID GLAND: Unremarkable to the extent seen. CARDIOVASCULAR STRUCTURES: Aortic and heart size normal. No pericardial effusion. CHEST WALL/AXILLA: Unremarkable. UPPER ABDOMEN: The gallbladder is incompletely covered in the [id number]; and a cholesterol gallstone is questioned (3:64). OSSEOUS STRUCTURES: There is multi-level thoracic and upper lumbar spondylosis. No acute or aggressive osseous finding is noted. CT/CT lung screening IMPRESSION: 1. Bilateral noncalcified lung nodules are seen, as detailed, the largest at the anterior right base measuring 7 mm. 2. There are scattered foci of minor scar/subsegmental atelectasis, without associated focal airway obstruction. 3. No thoracic lymphadenopathy or pleural effusion is seen. 4. There is multi-level thoracic spondylosis. 5. Question gallstone disease, which could be more fully evaluated with dedicated abdominal ultrasound, if clinically warranted. ASSESSMENT: 1. Lung-RADS Category 3: Probably benign findings. N/A 2. Lung-RADS Category S: Negative. There are no clinically significant or potentially clinically significant findings not related to the lungs requiring urgent additional evaluation. RECOMMENDATION: A 6-month follow up low-dose lung CT scan is recommended. An order for CT LUNG CANCER SCREENING SHORT INTERVAL FOLLOWUP ([id number]) can be placed. Electronically signed by: Tai Sanabria MD 12/09/2024 05:43 PM EST Dictated By: Tai Sanabria MD Signed By: <Electronically signed by Tai Sanabria MD in OV> 12/09/24 1743 DD/ 1045 TD/TT: 10/17/24 [address]: MASSIEL Assessment & Plan Assessment & Plan (1) Chronic cough: Code(s): R05.3 - Chronic cough Category: Medical (2) Pulmonary nodules: Comment: (abutting 7 mm and 6 mm noncalcified nodules in RLL - plan is 6 month repeat LDCT) Code(s): R91.8 - Other nonspecific abnormal finding of lung field Category: Medical (3) Nicotine dependence, cigarettes, uncomplicated: Comment: (onset 13yo, 1/2-1ppd x 48yrs, 35pyh) Code(s): F17.210 - Nicotine dependence, cigarettes, uncomplicated Category: Medical Plan Kayla presents for evaluation with known history of pulmonary nodules and chronic cough. She is scheduled for an upcoming [address] scan through the lung screening program for April 2025. Will send for PFT to assess for an obstructive defect given smoking history. Smoking cessation reviewed and patient is interested in hypnosis, which she will look into. She also reports significant environmental allergies and postnasal drip which may be contributing to cough, will empirically try ipratropium nasal spray. All questions were answered and patient is in agreement of plan. Will follow-up in 8-10 weeks or sooner if needed. Orders: Orders PFT pulmonary function test Today R05.3 - Chronic cough Medications: New ipratropium bromide administer into each nostril 2 sprays intranasal BID 30 mL 3RF Coding Level of Care Code New Pt Level 4 (20353) Diagnoses Chronic cough R05.3 Pulmonary nodules R91.8 Nicotine dependence, cigarettes, uncomplicated F17.210
== END 2025-04-08 13:44 | disposition home or self-care (01) ==
LOC: HO.HPSW 12:55
PROVIDERS: PCP Internal Medicine; Visit Provider Nurse Practitioner Family
DX: R05.3 Chronic cough (principal); R91.8 Other nonspecific abnormal finding of lung field; F17.210 Nicotine dependence, cigarettes, uncomplicated
CPT/HCPCS: 99204

== ENCOUNTER → 2025-04-08 12:55 | Outpatient (BNVA) | payer MEDICARE, OTHER, SELFPAY | PROVIDERS: PCP Internal Medicine; Visit Provider Nurse Practitioner Family | DX: R05.3 Chronic cough (principal); R91.8 Other nonspecific abnormal finding of lung field; M85.80 Other specified disorders of bone density and structure, unspecified site; F17.210 Nicotine dependence, cigarettes, uncomplicated | CPT/HCPCS: 99202 ==

== ENCOUNTER 2025-04-16 09:35 | Outpatient (AMB) | payer MEDICARE, OTHER, SELFPAY ==
--- NOTE | 2025-04-16 09:36 | AM.OFFWIN_ITS ---
Intake Vital Signs 04/16/25 09:38 Height 5 ft 5 in Weight 141 lb 6 oz BMI 23.5 BP 130/70 Blood Pressure Location Lt brachial Position Sitting Pulse 97 Pulse Source Pulse Oximeter Temp 98.4 F Temp Source Oral Pulse Oximetry (%) 97 Oxygen Delivery Method Room Air Intake Visit Reasons: EP-sore throat, chest mucus, fever Intake Note: Pt presents to the office today for c/o sore throat, fever, chest congestion x5 days. Pt states she went camping 2 weeks ago and got two bites on her left leg that hasnt healed yet. Patient Tobacco Use Status: Current everyday Tobacco user Allergies Penicillins [PENICILLINS] Allergy (Severe, Unverified 04/16/25 09:36) ANAPHYLAXIS penicillin V Allergy (Unknown, Verified 04/16/25 09:36) Difficulty Breathing HPI HPI Comments History of Present Illness Details History of Present Illness - The patient is a 64-year-old female pr esenting with symptoms suggesting a respiratory infection along with concerns over insect bites for the past 2 weeks. She states that she has not been getting better. - The upper respiratory symptoms have be en a sore throat, cough with sweet mucus, mild fever, sweats, and fatigue. - Tests for COVID-19 were conducted twic e with negative results. The patient had received a flu vaccine. - Concurrently, there are insect bites o n the patient's leg, characterized by itching and slow healing, first noticed a week and a half ago. - Past medical responses included cleani ng the bites and use of allergy sprays for respiratory symptoms. - She has been taking her allergy medica tions. - She denies fever, chills, CP, SOB, abd pain, n/v/d, ALAMO, dizziness, weakness, or travel. She denies smoking. Physical Exam General: Cooperative, healthy appearing, comfortable, no acute distress and well developed Ears: Hearing grossly normal bilaterally, TMs noted. Nose: Normal external nose present. Moist mucosa, normal turbinates noted. Face and sinus: Normal facial exam. No sinus tenderness noted. Eyes: Appearance normal, both eyes and all related structures Neck: Normal visual inspection and Yes full ROM. No lymphadenopathy noted. Respiratory: Normal respiratory effort and able to speak in complete sentences. Clear to auscultation bilaterally. Cardiovascular: Regular rate and rhythm. Normal S1 and S2 GI: Normal to inspection. Soft to palpation and nontender Skin: No rashes or lesions noted, insect bites present on lower left leg. Clean, dry no discharge noted. Patient was informed and verbally consented to the use of an ambient scribe for clinic note documentation during this visit. [facility] Medical History Osteopenia Nicotine dependence, cigarettes, uncomplicated High cholesterol Surgical History S/P excision of ganglion cyst Social History Alcohol intake: current Alcohol intake frequency: a few times a month Patient Tobacco Use Status: Current everyday Tobacco user Cigarette Packs Per Day: 0.5 Cigarettes Per Day: 10 Years Smoked: (onset 13yo, 1/2-1ppd x 48yrs, 35pyh) Current occupational status: employed Current occupation: teacher/rt hand Review of Systems Const All systems reviewed & are unremarkable except as noted in HPI and below Physical Exam Vital Signs: Last Vital Signs Temp 98.4 F 04/16/25 09:38 Pulse 97 04/16/25 09:38 BP 130/70 04/16/25 09:38 Pulse Ox 97 04/16/25 09:38 Oxygen Delivery Method Room Air 04/16/25 09:38 BMI result Body Mass Index 23.5 Results AMB Rapid Strep 2 AMB Rapid Strep Negative Last Edit by Jody Gonzalez CMA on 04/16/25 09:54 Results Reviewed Results Reviewed: Laboratory Last Values Strep Scn Rapid Clinic Negative 04/16/25 09:54 Assessment & Plan Assessment & Plan (1) URI (upper respiratory infection): Code(s): J06.9 - Acute upper respiratory infection, unspecified Qualifiers: URI type: unspecified viral URI Qualified Code(s): J06.9 - Acute upper respiratory infection, unspecified Plan Most likely URI vs covid vs flu vs allergic rhinitis vs sinusitis Rapid strep was negative in the office Plan - Prescribe a Z-Fausto for upper respiratory infection symptoms of five days, due to the duration of symptoms. - Advise continued use of Epsom salt baths for insect bites and re-evaluate if signs of infection appear. - Reinforce use of allergy medication for ongoing nasal congestion. - Monitor for any escalation of symptoms or development of new symptoms, consulting primary care if necessary. - Encourage follow-up with primary care to ensure recovery from current symptoms. Orders: Orders AMB Rapid Strep Screen Today Z13.9 - Encounter for screening, unspecified Medications: New azithromycin For 250 mg dose pack: take 500 mg today (day 1), then 250 mg for 4 days (days 2-5) PO 6 tabs 0RF Coding Level of Care Code Est Pt Level 3 (72967) Diagnoses Viral upper respiratory tract infection J06.9 URI type: unspecified viral URI
[2025-04-16 09:38] VITALS: BP 130/70; PULSE 97; TEMP 36.9; O2SAT 97; BMI 23.5
== END 2025-04-16 10:24 | disposition home or self-care (01) ==
PROVIDERS: PCP Internal Medicine; Visit Provider Physician Assistant Medical
DX: J06.9 Acute upper respiratory infection, unspecified (principal)

== ENCOUNTER → 2025-04-16 09:35 | Outpatient (BNVA) | payer MEDICARE, OTHER, SELFPAY | PROVIDERS: PCP Internal Medicine; Visit Provider Physician Assistant Medical | DX: J06.9 Acute upper respiratory infection, unspecified (principal) | CPT/HCPCS: 87880; 99212 ==

== ENCOUNTER 2025-05-05 08:47 | Outpatient (REF) | payer MEDICARE, OTHER, SELFPAY ==
--- NOTE | ~2025-05-05 | XR_ITS ---
EXAMINATION: XR RIBS, LEFT CLINICAL INFORMATION: R07.81 - Pleurodynia COMPARISON: 06/21/2021. TECHNIQUE: PA view of the chest, and 3 views of the left ribs were obtained. FINDINGS: Lungs are clear. No consolidation, pneumothorax, or pleural effusion. The cardiomediastinal silhouette and pulmonary vasculature are normal. Osseous structures are unremarkable. Ribs are intact. No fracture or focal rib lesion. XR/XR ribs LT min 3V w CXR1V IMPRESSION: 1. No active pulmonary disease. 2. No acute findings of the left ribs. Electronically signed by: Cuba Sherwood MD 05/05/2025 10:18 AM EDT
== END 2025-05-05 08:48 | disposition home or self-care (01) ==
LOC: HO.HMGCX 08:47
PROVIDERS: PCP Internal Medicine; Visit Provider Physician Assistant Medical
DX: R07.81 Pleurodynia (principal)
CPT/HCPCS: 71101; 99212

== ENCOUNTER 2025-05-05 08:47 | Outpatient (AMB) | payer MEDICARE, OTHER, SELFPAY ==
[2025-05-05 09:13] VITALS: BP 110/74; PULSE 84; TEMP 36.7; O2SAT 98; BMI 23.7
--- NOTE | 2025-05-05 09:13 | AM.OFFWIN_ITS ---
Intake Vital Signs 05/05/25 09:13 Height 5 ft 5 in Weight 142 lb 4 oz BMI 23.7 BP 110/74 Blood Pressure Location Rt brachial Position Sitting Pulse 84 Pulse Source Pulse Oximeter Temp 98.1 F Temp Source Oral Pulse Oximetry (%) 98 Oxygen Delivery Method Room Air Intake Visit Reasons: EP ? broken rib Intake Note: Patient present ? rib fracture times 2 days Patient Tobacco Use Status: Current everyday Tobacco user [employer] Work[employer] Required: No Allergies Penicillins (PENICILLINS) Allergy (Severe, Unverified 04/16/25 09:36) ANAPHYLAXIS penicillin V Allergy (Unknown, Verified 04/16/25 09:36) Difficulty Breathing Do you need a note to return to daycare/school/sports/work: No HPI HPI Comments History of Present Illness Details History of Present Illness - The patient is a 64-year-old female pr esenting with left-sided rib pain since Sunday. - The incident occurred while attempting to retrieve a cat from a crawl space, resulting in a popping sound in the rib area. - The pain was initially mild but worsen ed the following day, particularly after installing an air conditioner. - The patient reports tenderness the lef t-sided ribs under her left breast with no radiation of the pain. - She is scheduled to fly to [place] and is c oncerned about the impact of the rib pain on her travel plans. - The patient has been taking naproxen f or pain management and is considering an x-ray to confirm the diagnosis. - She denies bruising, fall, CP, SOB, or back pain. Physical Exam General: Cooperative, healthy appearing, comfortable, no acute distress and well developed Orientation: Patient oriented x3 Respiratory: Normal respiratory effort and able to speak in complete sentences. Clear to auscultation bilaterally Cardiovascular: Regular rate and rhythm. Normal S1 and S2 Skin: No rashes or lesions noted. No bruises noted. Musculoskeletal: TTP of the left anterior chest wall under the breast. No crepitus noted. Extremities: Normal to inspection. Strength is 5/5 on the UE bilaterally. Patient was informed and verbally consented to the use of an ambient scribe for clinic note documentation during this visit. [facility] Medical History Osteopenia Nicotine dependence, cigarettes, uncomplicated High cholesterol Surgical History S/P excision of ganglion cyst Social History Alcohol intake: current Alcohol intake frequency: a few times a month Patient Tobacco Use Status: Current everyday Tobacco user Cigarette Packs Per Day: 0.5 Cigarettes Per Day: 10 Years Smoked: (onset 13yo, 1/2-1ppd x 48yrs, 35pyh) Current occupational status: employed Current occupation: teacher/rt hand Review of Systems Const All systems reviewed & are unremarkable except as noted in HPI and below Physical Exam Vital Signs: Last Vital Signs Temp 98.1 F 05/05/25 09:13 Pulse 84 05/05/25 09:13 BP 110/74 05/05/25 09:13 Pulse Ox 98 05/05/25 09:13 Oxygen Delivery Method Room Air 05/05/25 09:13 BMI result Body Mass Index 23.7 Assessment & Plan Assessment & Plan (1) Rib pain on left side: Code(s): R07.81 - Pleurodynia Plan Most likely fracture vs costochondritis vs tendonitis vs muscle strain Plan - Recommend chest x-ray to confirm rib fracture and rule out other conditions such as costochondritis or tendinitis. - Continue naproxen for pain management. - Advise on activity modification to prevent exacerbation of symptoms. - No heavy lifting - Encourge deep breaths once an hour. - Follow up with PCP Orders: Orders XR ribs LT min 3V w CXR1V Today R07.81 - Pleurodynia Coding Level of Care Code Est Pt Level 4 (38961) Diagnoses Rib pain on left side R07.81
== END 2025-05-05 11:03 | disposition home or self-care (01) ==
PROVIDERS: PCP Internal Medicine; Visit Provider Physician Assistant Medical
DX: R07.81 Pleurodynia (principal)

== ENCOUNTER → 2025-05-05 09:58 | Outpatient (BNV) | payer MEDICARE, OTHER, SELFPAY | PROVIDERS: PCP Internal Medicine; Visit Provider Radiology Diagnostic Radiology | DX: R07.81 Pleurodynia (principal) | CPT/HCPCS: 71101 ==

== ENCOUNTER 2025-07-07 14:48 | Outpatient (REF) | payer MEDICARE, OTHER, SELFPAY ==
--- NOTE | ~2025-07-07 | CT_ITS ---
EXAMINATION: CT CHEST WITHOUT IV CONTRAST INDICATION: R91.8 - Other nonspecific abnormal finding of lung field COMPARISON: Comparison is made with the prior examination dated 10/17/2024. TECHNIQUE: Helical CT scan of the chest was performed without intravenous contrast. Coronal and sagittal reformatted images were generated and reviewed. This CT exam was performed with one or more of the following dose reduction techniques: automated exposure control, adjustment of the mA and/or kV according to patient size, use of iterative reconstruction technique. DLP: 137 mGy-cm CHEST: THYROID: The thyroid is unremarkable. LUNGS: Again seen are 2 adjacent nodules in the right lower lobe measuring up to 6 mm in size. The nodules appear to demonstrate a branching configuration and may represent obstructed bronchi. There is scarring at both lung bases. No additional pulmonary nodules are identified. MEDIASTINUM: There is no mediastinal lymphadenopathy. BOBBI: Evaluation of the hilar regions is limited by lack of intravenous contrast material. CARDIOVASCULATURE: The heart is normal in size. There is no pericardial effusion. The thoracic aorta is normal in caliber. DEGREE OF CORONARY CALCIFICATION: mild PLEURA: There is no pleural effusion. No pneumothorax. MAIN AIRWAYS: The mainstem bronchi and proximal branches are patent. AXILLA: There is no axillary lymphadenopathy. BONES AND SOFT TISSUES: Unremarkable UPPER ABDOMEN: The visualized portions of the liver, spleen, and adrenals have an unremarkable unenhanced appearance. CT/CT chest wo IV con IMPRESSION: Again seen are 2 adjacent nodules in the right lower lobe measuring up to 6 mm in size, which could represent obstructed bronchi. Continued follow-up is recommended. Electronically signed by: Emmanuel Maravilla MD 07/08/2025 07:17 AM EDT
--- NOTE | 2025-07-07 15:18 | PFT_ITS ---
Flows: FEV1: 105 % of predicted at 2.53 L FVC: 111 % of predicted at 3.44 L FEV1/FVC: 74 % Bronchodilator response: Absent Volumes: Total lung capacity: 111 % of predicted at 5.76 L Residual volume: 121 % of predicted at 2.32 L Slow vital capacity: 105 % of predicted at 3.44 L Expiratory reserve volume: 100 % of predicted at 0.80 L Diffusion capacity: Mildly decreased. Impression: No obstructive or restrictive ventilatory defect. No bronchodilator response. Increased residual volume suggests air trapping. Decreased diffusion capacity suggests emphysema. MTDD
[2025-07-07 15:51] VITALS: PULSE 80; O2SAT 99
== END 2025-07-07 14:49 | disposition home or self-care (01) ==
LOC: HO.RESP 14:48
PROVIDERS: PCP Internal Medicine; Visit Provider Nurse Practitioner Family
DX: R05.3 Chronic cough (principal); R91.8 Other nonspecific abnormal finding of lung field
CPT/HCPCS: 71250; 94010; 94640; 94727; 94729

== ENCOUNTER → 2025-07-07 15:18 | Outpatient (BNV) | payer MEDICARE, OTHER, SELFPAY | PROVIDERS: PCP Internal Medicine; Visit Provider Internal Medicine Pulmonary Disease | DX: R05.9 Cough, unspecified (principal) | CPT/HCPCS: 94060; 94727; 94729 ==

== ENCOUNTER → 2025-07-07 15:49 | Outpatient (BNV) | payer MEDICARE, OTHER, SELFPAY | PROVIDERS: PCP Internal Medicine; Visit Provider Radiology Diagnostic Radiology | DX: R91.8 Other nonspecific abnormal finding of lung field (principal) | CPT/HCPCS: 71250 ==

== ENCOUNTER 2025-07-16 07:09 | Outpatient (REF) | payer MEDICARE, OTHER, SELFPAY ==
[2025-07-16 08:29] LABS: Alanine Aminotransferase 23 U/L (0-31); Albumin Level 4.3 g/dL (3.5-5.0); Alkaline Phosphatase 97 U/L (39-117); Anion Gap 10 (12-20); Aspartate Amino Transferase 21 U/L (5-31); Blood Urea Nitrogen 16 mg/dL (9-16); Calcium 9.0 mg/dL (8.4-10.2); Carbon Dioxide 27 mmol/L (22-29); Chloride 109 mmol/L (96-108); Cholesterol 181 mg/dL (<200); Estimated Glomerular Filt Rate > 60; HDL Cholesterol 49 mg/dL (>40); Potassium 4.2 mmol/L (3.3-5.1); Sodium 142 mmol/L (135-145); Total Protein 6.8 g/dL (6.5-8.0); Triglycerides 197 mg/dL (<150)
== END 2025-07-16 07:10 | disposition home or self-care (01) ==
LOC: HO.LAB 07:09
PROVIDERS: PCP Internal Medicine; Visit Provider Internal Medicine
DX: Z13.21 Encounter for screening for nutritional disorder (principal); E78.00 Pure hypercholesterolemia, unspecified; Z72.0 Tobacco use; Z86.0101 Personal history of adenomatous and serrated colon polyps
CPT/HCPCS: 36415; 80053; 80061

== ENCOUNTER 2025-07-17 12:59 | Outpatient (AMB) | payer MEDICARE, OTHER, SELFPAY ==
--- NOTE | 2025-07-17 13:06 | MHC.OFFVIS ---
Vital Signs 07/17/25 13:07 Height 5 ft 5 in Weight 143 lb 6 oz BMI 23.9 BP 118/76 Blood Pressure Location Rt brachial Position Sitting Pulse 74 Pulse Source Pulse Oximeter Pulse Oximetry (%) 97 Oxygen Delivery Method Room Air Intake Visit Reasons: Increased difficulty breathing Allergies Penicillins (PENICILLINS) Allergy (Severe, Unverified 07/17/25 13:09) ANAPHYLAXIS penicillin V Allergy (Unknown, Verified 07/17/25 13:09) Difficulty Breathing HPI HPI Increased difficulty breathing: Details: Kayla is a pleasant 64-year-old female, current smoker, with 35 pack year history with underlying osteopenia and hypercholesteremia. She was referred from the lung screening program for pulmonary evaluation. She had her first low-dose CT scan October 2024 which revealed bilateral noncalcified lung nodules of right base measuring 7 mm. This was discussed at the multidisciplinary conference with recommendations for PET scan which was performed and did not reveal any FDG activity. She was supposed to have a [address], from 10/2024 scan for April however had difficulties scheduling due to caring for her and recently had CT in June. Today she presents to review CT and PFT. Since the last visit she did have COVID 4 weeks ago and has almost completely recovered. She also notes that her occasional dyspnea and chest tightness may be related to underlying anxiety as she is working towards quitting smoking. Reports prior h/o panic attacks which feel similar and was previously on an anti anxiety medication. Denies wheezing or cough. She plans to speak with PCP regarding this. REPLACED BY [facility] Medical History Osteopenia Nicotine dependence, cigarettes, uncomplicated High cholesterol Surgical History S/P excision of ganglion cyst Social History Alcohol intake: current Alcohol intake frequency: a few times a month Patient Tobacco Use Status: Current everyday Tobacco user Cigarette Packs Per Day: 0.5 Cigarettes Per Day: 10 Years Smoked: (onset 13yo, 1/2-1ppd x 48yrs, 35pyh) Current occupational status: employed Current occupation: teacher/rt hand Review of Systems Const Denies chills, Denies excessive sweating, Denies fever(s), Denies headache(s) and Denies night sweats Eyes Denies dry eyes, Denies irritation and Denies itchy eyes ENT Reports Normal hearing present, Denies headache(s), Denies nasal congestion, Denies nasal discharge, Denies post nasal drip and Denies sore throat Card Denies chest pain, Denies chest pain at rest, Denies chest pain with activity, Denies claudication, Denies leg edema, Denies dyspnea, Reports dyspnea on exertion, Denies orthopnea and Denies paroxysmal nocturnal dyspnea Resp Denies chest congestion, Denies excessive phlegm production, Denies pain on inspiration, Denies pain with cough, Denies dyspnea, Reports dyspnea on exertion, Denies stridor and Denies wheezing Musc Denies myalgias Neuro Reports Normal hearing present and Denies headache(s) Endo Denies excessive sweating Mj/Lymph Denies lymphadenopathy Aller/Immun Denies itchy eyes, Denies seasonal rhinorrhea and Denies wheezing Physical Exam Vital Signs: Last Vital Signs Pulse 74 07/17/25 13:07 BP 118/76 07/17/25 13:07 Pulse Ox 97 07/17/25 13:07 Oxygen Delivery Method Room Air 07/17/25 13:07 BMI result Body Mass Index 23.9 Const General: cooperative, healthy appearing, comfortable, no acute distress, well developed and alert Orientation/consciousness: patient oriented x3 Limitations: no limitations HEENT Head: Yes normal to inspection, Yes normocephalic and Yes atraumatic Ears: hearing grossly normal bilaterally and external ears normal Eyes General: appearance normal, both eyes and all related structures Eyelids: Yes eyelids normal Sclerae: sclerae normal EOM: EOMs intact bilaterally Neck Neck: Yes normal visual inspection and Yes no lymphadenopathy Lymphatic: no lymphadenopathy noted Chest Chest palpation & inspection: normal inspection of the chest Resp Effort & Inspection: normal respiratory effort, able to speak in complete sentences, no audible wheezes, no cough, no stridor, not tachypneic, no tripod positioning and no use of accessory muscles Auscultation: diminished lung sounds Cardio Jugular venous distension: no JVD Rate: regular rate Rhythm: regular rhythm Skin Other: warm, dry General skin exam: no rashes or lesions noted Neuro General: patient oriented x3 Cranial nerves: Yes Normal hearing present Cognition (Neuro): normal cognition Gait exam (Neuro): Normal gait present Extrem General: Yes normal to inspection, Yes capillary refill normal, Yes no clubbing, cyanosis or edema and Yes no pedal edema Psych Appearance: grossly normal and well kempt Speech and movement: Normal speech and movement present and Clear speech present Affect: normal affect Attitude: cooperative Thought process: Normal thought process present Thought content: Normal thought content present Insight: Good insight present (Psych) Judgement: Good judgement present (Psych) Results Reviewed Results Reviewed: [address] [address] [address] Scan Report Signed Patient: Kayla Abel MR#: [id number] : 1960 Acct:[id number] Age/Sex: 64 / F ADM Date: 07/07/25 Loc: HO.RESP Attending Dr: Arin Duff NP Ordering Physician: Arin Duff NP Date of Service: 07/07/25 Procedure(s): CT chest wo IV con Accession Number(s): [id number] cc: Kusum Fritz MD; Arin Duff NP~ Report Number: [id number]: Total DLP = 137.00 mGy-cm EXAMINATION: CT CHEST WITHOUT IV CONTRAST INDICATION: R91.8 - Other nonspecific abnormal finding of lung field COMPARISON: Comparison is made with the prior examination dated 10/17/2024. TECHNIQUE: Helical CT scan of the chest was performed without intravenous contrast. Coronal and sagittal reformatted images were generated and reviewed. This CT exam was performed with one or more of the following dose reduction techniques: automated exposure control, adjustment of the mA and/or kV according to patient size, use of iterative reconstruction technique. DLP: 137 mGy-cm CHEST: THYROID: The thyroid is unremarkable. LUNGS: Again seen are 2 adjacent nodules in the right lower lobe measuring up to 6 mm in size. The nodules appear to demonstrate a branching configuration and may represent obstructed bronchi. There is scarring at both lung bases. No additional pulmonary nodules are identified. MEDIASTINUM: There is no mediastinal lymphadenopathy. BOBBI: Evaluation of the hilar regions is limited by lack of intravenous contrast material. CARDIOVASCULATURE: The heart is normal in size. There is no pericardial effusion. The thoracic aorta is normal in caliber. DEGREE OF CORONARY CALCIFICATION: mild PLEURA: There is no pleural effusion. No pneumothorax. MAIN AIRWAYS: The mainstem bronchi and proximal branches are patent. AXILLA: There is no axillary lymphadenopathy. BONES AND SOFT TISSUES: Unremarkable UPPER ABDOMEN: The visualized portions of the liver, spleen, and adrenals have an unremarkable unenhanced appearance. CT/CT chest wo IV con IMPRESSION: Again seen are 2 adjacent nodules in the right lower lobe measuring up to 6 mm in size, which could represent obstructed bronchi. Continued follow-up is recommended. Electronically signed by: Emmanuel Maravilla MD 07/08/2025 07:17 AM EDT RP Dictated By: Emmanuel Maravilla MD Signed By: <Electronically signed by Emmanuel Maravilla MD in OV> 07/08/25 0717 DD/ 1642 TD/TT: 07/07/25 1656 Archival Studies Professor: Assessment & Plan Assessment & Plan (1) Chronic cough: Code(s): R05.3 - Chronic cough Category: Medical (2) Pulmonary nodules: Comment: (abutting 7 mm and 6 mm noncalcified nodules in RLL - plan is 6 month repeat LDCT) Code(s): R91.8 - Other nonspecific abnormal finding of lung field Category: Medical (3) Nicotine dependence, cigarettes, uncomplicated: Comment: (onset 13yo, 1/2-1ppd x 48yrs, 35pyh) Code(s): F17.210 - Nicotine dependence, cigarettes, uncomplicated Category: Medical Plan Reviewed PFT which revealed no obstructive or restrictive ventilatory defect. No bronchodilator response. Increased residual volume suggests air trapping. Decreased diffusion capacity suggests emphysema. Reviewed chest CT which was stable, will repeat in one year as nodules have been stable for almost 9 months. Smoking cessation reviewed and patient will reach out to PCP regarding anxiety. She is aware to call if anxiety has been controlled and symptoms of dyspnea persist. All questions were answered and patient is in agreement of plan. Will follow-up in 3 months or sooner if needed. Orders: Orders CT chest wo IV con 11 Months R91.8 - Other nonspecific abnormal finding of lung field Coding Level of Care Code Est Pt Level 4 (45514) Diagnoses Chronic cough R05.3 Pulmonary nodules R91.8 Nicotine dependence, cigarettes, uncomplicated F17.210
[2025-07-17 13:07] VITALS: BP 118/76; PULSE 74; O2SAT 97; BMI 23.9
== END 2025-07-17 13:30 | disposition home or self-care (01) ==
LOC: HO.HPSW 13:00
PROVIDERS: PCP Internal Medicine; Visit Provider Nurse Practitioner Family
DX: R05.3 Chronic cough (principal); R91.8 Other nonspecific abnormal finding of lung field; F17.210 Nicotine dependence, cigarettes, uncomplicated
CPT/HCPCS: 99214

== ENCOUNTER → 2025-07-17 12:59 | Outpatient (BNVA) | payer MEDICARE, OTHER, SELFPAY | PROVIDERS: PCP Internal Medicine; Visit Provider Nurse Practitioner Family | DX: R05.3 Chronic cough (principal); R06.02 Shortness of breath; R91.8 Other nonspecific abnormal finding of lung field; F17.210 Nicotine dependence, cigarettes, uncomplicated; M85.80 Other specified disorders of bone density and structure, unspecified site; E78.00 Pure hypercholesterolemia, unspecified | CPT/HCPCS: 99212 ==

== ENCOUNTER 2025-07-28 08:28 | Outpatient (REF) | payer MEDICARE, OTHER, SELFPAY ==
--- NOTE | ~2025-07-28 | MM_ITS ---
EXAMINATION: MM SCREENING DIGITAL BREAST TOMOSYNTHESIS, BILATERAL CLINICAL INFORMATION: Screening. Asymptomatic. History of previous biopsy, of unknown side. COMPARISON: June 05, 2024 and December 24, 2021 TECHNIQUE: Digital breast tomosynthesis is performed in mediolateral oblique and craniocaudal views along with computer-aided detection (CAD). Synthesized 2D images are generated from the tomosynthesis. FINDINGS: BREAST COMPOSITION: There are scattered areas of fibroglandular density (ACR BI-RADS breast composition Category b). RIGHT BREAST: Asymmetry with possible architectural distortion in the upper breast at 2 cm from the nipple on the MLO view (MLO 37/62). No suspicious calcifications are seen. LEFT BREAST: No significant masses, suspicious calcifications or other abnormalities are seen. MM/MM tomosynthesis screening BI IMPRESSION: RIGHT BREAST: Asymmetry with possible architectural distortion in the upper breast anterior depth on the MLO view. LEFT BREAST: Negative, no mammographic evidence of malignancy. Normal interval follow-up is recommended in 12 months. ASSESSMENT: BI-RADS 0 - Incomplete: Needs additional Imaging. RECOMMENDATION: 1. Additional views of the right breast 2. Targeted ultrasound if warranted after review of the additional views. 3. Radiology department staff will contact the patient for additional imaging. FOLLOW-UP: Additional Imaging required This examination should not preclude the clinical evaluation of a suspicious palpable abnormality. This patient's information was entered into a reminder system with a target due date for their next mammogram. Electronically signed by: Tressa Ly MD 07/28/2025 07:23 PM EDT
== END 2025-07-28 08:29 | disposition home or self-care (01) ==
LOC: HO.MAMMO 08:28
PROVIDERS: PCP Internal Medicine; Visit Provider Internal Medicine
DX: Z12.31 Encounter for screening mammogram for malignant neoplasm of breast (principal)
CPT/HCPCS: 77063; 77067

== ENCOUNTER → 2025-07-28 08:45 | Outpatient (BNV) | payer MEDICARE, OTHER, SELFPAY | PROVIDERS: PCP Internal Medicine; Visit Provider Radiology Body Imaging | DX: Z12.31 Encounter for screening mammogram for malignant neoplasm of breast (principal) | CPT/HCPCS: 77063; 77067 ==

== ENCOUNTER 2025-08-26 10:45 | Outpatient (AMB) | payer MEDICARE, OTHER, SELFPAY ==
--- NOTE | 2025-08-26 10:51 | MHC.OFFWIV ---
Intake Vital Signs 08/26/25 10:53 Height 5 ft 5 in Weight 143 lb 4 oz BMI 23.8 BP 120/72 Blood Pressure Location Rt brachial Position Sitting Pulse 76 Pulse Source Pulse Oximeter Temp 98.2 F Temp Source Oral Pulse Oximetry (%) 97 Oxygen Delivery Method Room Air Intake Visit Reasons: ep tick on upper back and one in lower back Patient Tobacco Use Status: Current everyday Tobacco user Allergies Penicillins (PENICILLINS) Allergy (Severe, Verified 08/26/25 10:55) ANAPHYLAXIS penicillin V Allergy (Unknown, Verified 08/26/25 10:55) Difficulty Breathing Do you need a note to return to daycare/school/sports/work: No HPI HPI Comments History of Present Illness Details History - The patient is a 65-year-old female presenting with concerns of a tick bite. - She discovered the tick attached to her back early in the morning and removed it without close examination. - She has another one that she can't see and was not able to get it out. - A scabbed area with a ring formation was observed at the bite site. - [place] when she noticed something on her back. - She denies fever, chills, myalgias, joint pain, CP, or SOB. Physical Exam General: Cooperative, healthy appearing, comfortable, no acute distress and well developed Orientation: Patient oriented x 2 Respiratory: Normal respiratory effort and able to speak in complete sentences. Skin: Evidence of tick bites with scabbing and erythema noted. Small tick noted in one area. No bleeding or discharge noted. No Bull's eye noted. No erythema noted or induration noted. Patient was informed and verbally consented to the use of an ambient scribe for clinic note documentation during this visit. [facility] Medical History Osteopenia Nicotine dependence, cigarettes, uncomplicated High cholesterol Surgical History S/P excision of ganglion cyst Social History Alcohol intake: current Alcohol intake frequency: a few times a month Patient Tobacco Use Status: Current everyday Tobacco user Cigarette Packs Per Day: 0.5 Cigarettes Per Day: 10 Years Smoked: (onset 13yo, 1/2-1ppd x 48yrs, 35pyh) Current occupational status: employed Current occupation: teacher/rt hand Review of Systems Const All systems reviewed & are unremarkable except as noted in HPI and below Physical Exam Vital Signs: Last Vital Signs Temp 98.2 F 08/26/25 10:53 Pulse 76 08/26/25 10:53 BP 120/72 08/26/25 10:53 Pulse Ox 97 08/26/25 10:53 Oxygen Delivery Method Room Air 08/26/25 10:53 BMI result Body Mass Index 23.8 Office Procedures AMB Foreign Body Removal Details: Area cleaned with alcohol. Small tick removed from her mid back with tweezers. Procedure was well tolerated. No complications. Foreign Body Removal Simple: [id number], simple Procedure code (CPT) selection complete Assessment & Plan Assessment & Plan (1) Tick bite of back: Code(s): S30.860A - Insect bite (nonvenomous) of lower back and pelvis, initial encounter; W57.XXXA - Bitten or stung by nonvenomous insect and other nonvenomous arthropods, initial encounter Qualifiers: Encounter type: initial encounter Qualified Code(s): S30.860A - Insect bite (nonvenomous) of lower back and pelvis, initial encounter; W57.XXXA - Bitten or stung by nonvenomous insect and other nonvenomous arthropods, initial encounter Plan Most likely tick bite plan - removed the tick in the office today - cleaned the wounds with alcohol - doxycycline 100 mg for 7 days - bactroban ointment to the areas TID - watch for signs of infection - tyleno or motrin as needed - follow up with PCP Orders: Orders AMB Removal of foreign body Today S30.860A - Insect bite (nonvenomous) of lower back and pelvis, initial encounter, W57.XXXA - Bitten or stung by nonvenomous insect and other nonvenomous arthropods, initial encounter Medications: New doxycycline hyclate 100 mg PO BID 14 tabs 0RF mupirocin 2% 1 appl topical TID 22 grams 0RF Coding Level of Care Code Est Pt Level 3 (69398) Diagnoses Tick bite of back, initial encounter S30.860A; W57.XXXA Encounter type: initial encounter CPT Codes Details - Foreign body simple: [id number], simple ([id number])
[2025-08-26 10:53] VITALS: BP 120/72; PULSE 76; TEMP 36.8; O2SAT 97; BMI 23.8
== END 2025-08-26 11:55 | disposition home or self-care (01) ==
PROVIDERS: PCP Internal Medicine; Visit Provider Physician Assistant Medical
DX: S30.860A Insect bite (nonvenomous) of lower back and pelvis, initial encounter (principal); W57.XXXA Bitten or stung by nonvenomous insect and other nonvenomous arthropods, initial encounter

== ENCOUNTER 2025-08-26 13:14 | Outpatient (REF) | payer MEDICARE, OTHER, SELFPAY ==
--- NOTE | ~2025-08-26 | MM_ITS ---
EXAMINATION: MM DIAGNOSTIC DIGITAL BREAST TOMOSYNTHESIS, RIGHT CLINICAL INFORMATION: Callback from screening for asymmetry in the superior right breast on MLO view. COMPARISON: Mammography: [facility] on PACS. TECHNIQUE: Digital breast tomosynthesis is performed in both the craniocaudal and mediolateral oblique views along with computer-aided detection (CAD). Synthesized 2D images are generated from the tomosynthesis. FINDINGS: There are scattered areas of fibroglandular density. The previously seen asymmetry in the superior breast on MLO view anterior depth does not persist on additional imaging projections and likely represented overlapping breast tissue. No suspicious calcifications or other abnormal findings. MM/MM tomosynthesis added views R IMPRESSION: No mammographic evidence of malignancy. ASSESSMENT: BI-RADS Category 1: Negative RECOMMENDATION: 1 year F/U Results were provided to the patient at time of visit by the technologist. This patient's information was entered into a reminder system with a target due date for their next mammogram. Electronically signed by: Susanne Wade DO 08/26/2025 01:54 PM EDT
== END 2025-08-26 13:15 | disposition home or self-care (01) ==
LOC: HO.MAMMO 13:14
PROVIDERS: PCP Internal Medicine; Visit Provider Internal Medicine
DX: S30.860A Insect bite (nonvenomous) of lower back and pelvis, initial encounter (principal); W57.XXXA Bitten or stung by nonvenomous insect and other nonvenomous arthropods, initial encounter; Y93.L9 Activity, other outdoor activity; Y92.833 Campsite as the place of occurrence of the external cause; Y99.9 Unspecified external cause status; N64.89 Other specified disorders of breast; R92.322 Mammographic fibroglandular density, left breast
CPT/HCPCS: 77061; 77065; 99212

== ENCOUNTER → 2025-08-26 13:30 | Outpatient (BNV) | payer MEDICARE, OTHER, SELFPAY | PROVIDERS: PCP Internal Medicine; Visit Provider Internal Medicine | DX: R92.8 Other abnormal and inconclusive findings on diagnostic imaging of breast (principal) | CPT/HCPCS: 77065; G0279 ==

== ENCOUNTER 2025-10-02 15:03 | Outpatient (AMB) | payer MEDICARE, OTHER, SELFPAY ==
--- NOTE | 2025-10-02 15:08 | MHC.OFFVIS ---
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 The patient reports the onset of these symptoms is new, occurring within the past three months after having COVID-19, followed by influenza with a sinus infection, and then tick bites requiring antibiotics. The patient describes a sensation of pressure, like a bra being too tight, which occurs mostly at rest or when feeling anxious, but not with physical activity. The patient denies chest pain, dizziness, fainting, or swelling in the legs or hands, but does acknowledge a history of panic attacks. Past medical history is significant for hyperlipidemia, sleep apnea, heart palpitations, and hypertension. Current medications include rosuvastatin 10 mg daily, and other noncardiac meds . The patient also has a history of pneumonia, follows with a intelligence intern for lung scarring, and uses a daily inhaler. The patient is a current smoker having reduced from one pack per day to 3-7 cigarettes daily, and rarely consumes alcohol. The patient reports being physically active with walking, yard work, and being constantly on their feet. There is a significant family history of heart disease; the patient's father had coronary artery disease with myocardial infarctions in his 40s but lived into his 90s, and the patient's mother had a myocardial infarction, angina, and at age 72 from heart issues. The patient's three older siblings have no history of heart disease. [facility] Medical History (Updated 10/02/25 @ 16:16 by Kayy Saavedra NP-C) Osteopenia Nicotine dependence, cigarettes, uncomplicated High cholesterol Surgical History S/P excision of ganglion cyst Social History Alcohol intake: current Alcohol intake frequency: a few times a month Patient Tobacco Use Status: Current everyday Tobacco user Cigarette Packs Per Day: 0.5 Cigarettes Per Day: 10 Years Smoked: (onset 13yo, 1/2-1ppd x 48yrs, 35pyh) Current occupational status: employed Current occupation: teacher/rt hand Review of Systems Const All systems reviewed & are unremarkable except as noted in HPI and below ENT Denies dizziness Card Details: Random episodes of shortness of breath and a heaviness in her chest occurring at rest. Denies chest pain, Denies chest pain at rest, Denies chest pain with activity, Denies rapid heart rate, Denies pedal edema, Denies edema, Denies leg edema, Denies lightheadedness, Denies palpitations, Reports dyspnea, Denies dyspnea on exertion and Denies orthopnea Resp Denies cough, Reports dyspnea and Denies dyspnea on exertion GI Denies hematochezia and Denies change in stool character Musc Denies abnormal gait, Denies limited range of motion, Denies muscle cramps, Denies muscle weakness, Denies numbness, Denies radiating pain into limb, Denies stiffness and Denies tingling Neuro Denies abnormal gait, Denies dizziness, Denies numbness and Denies tingling Endo Denies palpitations Physical Exam Vital Signs: Last Vital Signs Pulse 76 10/02/25 15:09 BP 124/82 10/02/25 15:09 BMI result Body Mass Index 24.1 Const General: cooperative, healthy appearing, comfortable and no acute distress Orientation/consciousness: patient oriented x3 Neck Neck: Yes normal visual inspection and Yes no JVD Resp Effort & Inspection: normal respiratory effort Auscultation: clear to auscultation bilaterally, no rales, no rhonchi and no wheezes Cardio Rate: regular rate Rhythm: regular rhythm Heart sounds: S1 normal heart sound present, S2 normal heart sound present, no gallops, no murmurs and no rubs Neuro General: patient oriented x3 Extrem General: Yes normal to inspection, No no pedal edema and No calf tenderness Psych Appearance: grossly normal Mental Status: mental status grossly normal Speech and movement: Normal speech and movement present Office Procedures EKG Details: Today, read by me, sinus rhythm with short GA interval 108 milliseconds, nonspecific T-wave abnormality, rate 76, QTC 429 milliseconds [id number], Complete Assessment & Plan Assessment & Plan (1) Shortness of breath: Code(s): R06.02 - Shortness of breath Category: Medical Plan: Reports of newer feeling of shortness of breath with chest heaviness when at rest. No nighttime or exertional symptoms. Cardiac risk factors of hyperlipidemia, smoking, family history. EKG today sinus rhythm with short GA interval nonspecific T-wave abnormalities, rate 76. Check an echocardiogram to assess for structural heart disease. Will check a exercise stress echo to evaluate for ischemia. Informed her her symptoms do sound atypical but cardiac evaluation will be done due to risk factors. Continue atorvastatin for good cholesterol control. Cardiology follow-up 4-6 weeks, sooner if needed. (2) Chest heaviness: Code(s): R07.89 - Other chest pain Category: Medical Plan: As above (3) Abnormal finding on EKG: Code(s): R94.31 - Abnormal electrocardiogram [ECG] [EKG] Category: Medical Plan: EKG today showing short GA interval, nonspecific T-wave abnormality. -pursuing stress echo as above (4) Nicotine dependence, cigarettes, uncomplicated: Comment: (onset 13yo, 1/2-1ppd x 48yrs, 35pyh) Code(s): F17.210 - Nicotine dependence, cigarettes, uncomplicated Category: Medical Plan: Current smoker, long-term. Has been working on cutting down smoking amount. (5) High cholesterol: Code(s): E78.00 - Pure hypercholesterolemia, unspecified Category: Medical Plan: LDL goal less than 100. If she is found to have CAD than her goal will be reduced to less than 70. Continue atorvastatin. Plan I discussed with the patient the plan to evaluate for coronary artery disease, given the symptoms and significant family history. I explained that we will start with two tests: an echocardiogram to look at the heart's structure and function, and a stress echocardiogram to see how the heart performs under exercise. I informed the patient that these results will give us a good initial understanding of the heart's health and will guide any further steps. I advised the patient that the hospital's scheduling department will call to arrange these tests, and I will request they be done on the same day for convenience. The patient is to schedule a follow-up appointment at the front office help before leaving. Orders: Orders CA echo stress exercise Today R06.02 - Shortness of breath, R07.89 - Other chest pain, R94.31 - Abnormal electrocardiogram [ECG] [EKG] CA echo transthoracic complete Today R06.02 - Shortness of breath, R07.89 - Other chest pain, R94.31 - Abnormal electrocardiogram [ECG] [EKG] Patient Instructions: - We will order two tests to check your heart: an echocardiogram (an ultrasound of the heart) and a stress echocardiogram, which involves exercising on a treadmill. - The hospital's scheduling department will call you to set up these tests. - We will request that both tests be done on the same day if possible. - If you have a rescue inhaler for breathing emergencies, please bring it with you to your stress test appointment. Patient was informed and verbally consented to the use of an ambient scribe for clinic note documentation during this visit. Visit time spent on chart review, interview, assessment, orders, documentation. Coding Level of Care Code Complex visit Add On G2211 Diagnoses Shortness of breath R06.02 Chest heaviness R07.89 Abnormal finding on EKG R94.31 Nicotine dependence, cigarettes, uncomplicated F17.210 High cholesterol E78.00 CPT Codes EKG - CPT: 18934-[id number], Complete ([id number])
[2025-10-02 15:09] VITALS: BP 124/82; PULSE 76; BMI 24.1
== END 2025-10-02 15:42 | disposition home or self-care (01) ==
LOC: HO.HCS 15:04
PROVIDERS: PCP Internal Medicine; Visit Provider Nurse Practitioner Family
DX: R06.02 Shortness of breath (principal); R07.89 Other chest pain; R94.31 Abnormal electrocardiogram [ECG] [EKG]; F17.210 Nicotine dependence, cigarettes, uncomplicated; E78.00 Pure hypercholesterolemia, unspecified
CPT/HCPCS: 93010; 99214; G2211

== ENCOUNTER → 2025-10-02 15:03 | Outpatient (BNVA) | payer MEDICARE, OTHER, SELFPAY | PROVIDERS: PCP Internal Medicine; Visit Provider Nurse Practitioner Family | DX: R06.02 Shortness of breath (principal); R07.89 Other chest pain; F17.210 Nicotine dependence, cigarettes, uncomplicated; R94.31 Abnormal electrocardiogram [ECG] [EKG]; E78.00 Pure hypercholesterolemia, unspecified | CPT/HCPCS: 93005; 99212 ==